=== PATIENT | female | born 1960 | race Caucasian/White ===

== ENCOUNTER 2016-12-26 15:00 | Emergency (ER) | payer OTHER ==
[~2016-12-26] VITALS: Ht 170.2 cm; Wt 65.8 kg
== END 2016-12-26 17:32 | disposition home or self-care (01) ==
LOC: ED 15:00
DX: M50.33 Other cervical disc degeneration, cervicothoracic region (principal); F32.9 Major depressive disorder, single episode, unspecified; F17.200 Nicotine dependence, unspecified, uncomplicated; Z98.51 Tubal ligation status; Z91.040 Latex allergy status; Y08.89XA Assault by other specified means, initial encounter
CPT/HCPCS: 70450; 72125; 99284